=== PATIENT | female | born 1995 | race Caucasian/White ===

== ENCOUNTER 2017-06-02 22:29 | Emergency (ER) | payer MEDICAID ==
[~2017-06-02] VITALS: Ht 193 cm; Wt 108.9 kg
--- OUTSIDE RECORDS SUMMARY | ~2017-06-02 | XMS ---
Demographics + + + | Address | [address] | | | [place] [address] | + + + | Preferred Language | Unknown | + + + | Marital Status | Unknown | + + + | Zoroastrian Affiliation | Unknown | + + + | Race | Unknown | + + + | Ethnic Group | Unknown | + + + Author + + + | Author | [facility] | + + + | Organization | [facility] | + + + | Address | [address] | | | [place] [address] | + + + | Phone | | + + + Care Team Providers + + + + | Care Doughnut Dough Mixer Name | Role | Phone | + + + + Unavailable | Unavailable | + + + + PROBLEMS + + + + + + + + | Type | Condition | ICD9-CM | [id number] | Onset | Condition | SNOMED | | | | Code | Code | Dates | Status | Code | + + + + + + + + | Assessment | Encounter | | Z13.89 | 18 Nov, | Active | [id number] | | | for | | | 2016 | | | | | screening | | | | | | | | for other | | | | | | | | disorder | | | | | | + + + + + + + + | Problem | Snoring | | R06.83 | | Active | [id number] | + + + + + + + + | Assessment | Tear of | S83.206A | | 18 Nov, | Active | | | | meniscus | | | 2017 | | | | | of right | | | | | | | | knee | | | | | | + + + + + + + + | Assessment | Screening | | Z13.220 | 18 Nov, | Active | [phone] | | | cholestero | | | 2017 | | | | | l level | | | | | | + + + + + + + + | Assessment | Depression | Z13.89 | | 18 Apr, | Active | [phone] | | | screen | | | 2016 | | | + + + + + + + + | Problem | Depression | | F41.8 | | Active | [id number] | | | with | | | | | | | | anxiety | | | | | | + + + + + + + + | Problem | Pain in | | M25.561 | | Active | [phone] | | | right knee | | | | | [address] | + + + + + + + + | Problem | JODI | G47.33 | | | Active | 89170972 | | | (obstructi | | | | | | | | ve sleep | | | | | | | | apnea) | | | | | | + + + + + + + + | Problem | Enlarged | J35.1 | | | Active | [id number] | | | tonsils | | | | | | + + + + + + + + | Problem | Other | G89.29 | | | Active | 19070095 | | | chronic | | | | | | | | pain | | | | | | + + + + + + + + | Problem | Tear of | S83.206A | | | Active | | | | meniscus | | | | | | | | of right | | | | | | | | knee | | | | | | + + + + + + + + ALLERGIES + + + + +---------+ | Substance | Reaction | Event Type | Date | Status | + + + + +---------+ | Suzanne. | Unknown | Non Drug | 18 Nov, 2016 | Unknown | | | | Allergy | | | + + + + +---------+ SOCIAL HISTORY No smoking Hx information available PLAN OF CARE + +---------+ | Activity | Details | + +---------+ +---+ | | +---+ + + + | Pending Test | TSH+Free T4 | + + + | Pending Test | Lipid Panel | + + + | | 4 Weeks,Reason: | + + + VITAL SIGNS + + + + | Height | 66 in | 2016-12-17 | + + + + | Weight | 238.8 lbs | 2016-12-17 | + + + + | BMI | 38.54 kg/m2 | 2016-12-17 | + + + + | Temperature | 99.0 degrees Fahrenheit | 2016-12-17 | + + + + | Heart Rate | 88 /min | 2016-12-17 | + + + + | Blood pressure systolic | 132 mm Hg | 2016-12-17 | + + + + | Blood pressure diastolic | 88 mm Hg | 2016-12-17 | + + + + MEDICATIONS + + + + +--------+ + +--------+ | Medicati | Instruct | Dosage | Frequenc | Start | End Date | Duration | Status | | on | ions | | y | Date | | | | + + + + +--------+ + +--------+ | Nexplano | | as | | | | | Active | | n 68 MG | | directed | | | | | | + + + + +--------+ + +--------+ RESULTS No Results PROCEDURES + + + + + | Procedure | Date Ordered | Related Diagnosis | Body Site | + + + + + | Est Level IV | December 17, 2016 | | | | Extended | | | | + + + + + | [facility] MED/CURRENT | December 17, 2016 | | | | MED MERGE | | | | + + + + + | DOC MEDS VERIFIED | December 17, 2016 | | | | W/PT OR RE | | | | + + + + + IMMUNIZATIONS No Known Immunizations"
--- OUTSIDE RECORDS SUMMARY | ~2017-06-02 | XMS ---
Demographics + + + | Address | [address] | | | [place] [address] | + + + | Preferred Language | Unknown | + + + | Marital Status | Unknown | + + + | Rastafari Affiliation | Unknown | + + + | Race | Unknown | + + + | Ethnic Group | Unknown | + + + Author + + + | Author | [facility] | + + + | Organization | [facility] | + + + | Address | [address] | | | [place] [address] | + + + | Phone | | + + + Care Team Providers + + + + | Care School Childcare Attendant Name | Role | Phone | + + + + Unavailable | Unavailable | + + + + PROBLEMS +---------+ + + +--------+ + + | Type | Condition | ICD9-CM | [id number] | Onset | Condition | SNOMED | | | | Code | Code | Dates | Status | Code | +---------+ + + +--------+ + + | Problem | Snoring | | R06.83 | | Active | [id number] | +---------+ + + +--------+ + + | Problem | Depression | | F41.8 | | Active | [id number] | | | with | | | | | | | | anxiety | | | | | | +---------+ + + +--------+ + + | Problem | Pain in | | M25.561 | | Active | [id number] | | | right knee | | | | | [address] | +---------+ + + +--------+ + + | Problem | JODI | G47.33 | | | Active | [id number] | | | (obstructi | | | | | | | | ve sleep | | | | | | | | apnea) | | | | | | +---------+ + + +--------+ + + | Problem | Enlarged | J35.1 | | | Active | [id number] | | | tonsils | | | | | | +---------+ + + +--------+ + + | Problem | Other | G89.29 | | | Active | [id number] | | | chronic | | | | | | | | pain | | | | | | +---------+ + + +--------+ + + | Problem | Tear of | S83.206A | | | Active | | | | meniscus | | | | | | | | of right | | | | | | | | knee | | | | | | +---------+ + + +--------+ + + ALLERGIES Unknown Allergies SOCIAL HISTORY No smoking Hx information available PLAN OF CARE VITAL SIGNS MEDICATIONS Unknown Medications RESULTS No Results PROCEDURES No Known procedures IMMUNIZATIONS No Known Immunizations"
--- NOTE | 2017-06-03 08:18 | EKG ---
[facility] [address] [facility] [address] [place] [address] Signed Normal sinus rhythm Normal ECG No previous ECGs available Confirmed by OTONIEL ORTIZ MD ([id number]) on 06/03/2017 8:18:14 AM Electronically Signed By: OTONIEL ORTIZ MD 06/03/17 0818 PATIENT NAME: SEB LEBLANC Electrocardiogram DATE OF : [birth year] PHYSICIAN: OTONIEL ORTIZ MD REPORT #: [id number] REPORT IS CONFIDENTIAL AND NOT TO BE RELEASED WITHOUT AUTHORIZATION
== END 2017-06-03 03:13 | disposition home or self-care (01) ==
LOC: ED 22:29
DX: R07.89 Other chest pain (principal)
CPT/HCPCS: 36415; 80053; 84484; 85025; 93005; 93010; 99284

== ENCOUNTER 2017-08-10 12:34 | Emergency (ER) | payer OTHER ==
[~2017-08-10] VITALS: Ht 193 cm; Wt 108.9 kg
[2017-08-10] MEDS ORDERED: METHYLPREDNISOLO4 M1 PO (13:29)
== END 2017-08-10 13:48 | disposition home or self-care (01) ==
LOC: ED 12:34
DX: M25.561 Pain in right knee (principal); Z79.52 Long term (current) use of systemic steroids
CPT/HCPCS: 99283

== ENCOUNTER 2017-11-20 16:32 | Emergency (ER) | payer OTHER ==
[~2017-11-20] VITALS: Ht 175.3 cm; Wt 99.8 kg
[~2017-11-20 16:32] MED LIST: METHYLPREDNISOLO4 M1 PO; ULTRAM50 MG PO
== END 2017-11-20 16:43 | disposition home or self-care (01) ==
LOC: ED 16:32
DX: K08.89 Other specified disorders of teeth and supporting structures (principal)